=== PATIENT | female | born 1995 | race Caucasian/White ===

== ENCOUNTER 2022-09-25 02:35 | Inpatient (IN) | payer MEDICAID, SELFPAY ==
[2022-09-25] VITALS (20 sets, daily range): BP systolic 82–130; BP diastolic 48–80; PULSE 52–111; RESP 15–18; TEMP 36.8–37.2; O2SAT 97–100; BMI 39.9
--- NOTE | 2022-09-25 02:46 | LDADM ---
This patient, Linn Servin, was admitted to Labor/Delivery/Recovery 107 on 09/25/22 at 02:49. Plans for labor, pain management and were discussed with patient. Patient/family oriented to hospital policies and general routines including ID bracelet, bed and alarms, visiting hours, pain management, procedures, bathroom and other care routines, personal items, smoking policy, room service/diet and guest tray routines, security routines, and visiting hours. Patient/Family are encouraged to report perceived risks to care and to ask questions if they do not understand what they are told or what they should do. See OBIX for further documentation.
[2022-09-25 03:42] LABS: Basophils Percent Auto 0.2 % (0.2-1.2); Eosinophils Absolute Auto 0.1 K/mm3 (0-0.3); Eosinophils Percent Auto 0.5 % (0-4.4); Hematocrit 37.7 % (37.0-47.0); Hemoglobin 12.8 g/dL (12.0-15.0); Immature Granulocyte Absolute 0.04 K/mm3 (0.00-0.031); Immature Granulocyte Percent A 0.4 % (0-0.5); Lymphocytes Absolute Auto 2.17 K/mm3 (0.9-3.2); Lymphocytes Percent Auto 23.2 % (18.3-44.2); Mean Corpuscular Hemoglobin 29.7 pg (26-34); Mean Corpuscular Volume 87.5 fl (80-100); Mean Platelet Volume 9.6 fl (7.4-10.4); Monocytes Absolute Auto 0.9 K/mm3 (0.1-0.6); Monocytes Percent Auto 10.1 % (2.6-8.5); Neutrophils Absolute Auto 6.1 K/mm3 (1.3-6.7); Neutrophils Percent Auto 65.6 % (45.5-73.1); Platelet Count Result 255 k/mm3 (150-375); Red Blood Count 4.31 M/mm3 (4.2-5.4); Red Cell Distribution Width 13.2 % (11.5-14.5); White Blood Count 9.3 K/mm3 (4.5-10.0)
[2022-09-25] MEDS: LACTATED RINGERS 1,000 ML 125 ML IV CONT (04:10)
[2022-09-25] MEDS: ceFAZolin 2 GM/D5W 50 ML 2 GM/50 ML BAG IVPB (04:10)
[2022-09-25 04:29] LABS: Amphetamine Screen Urine Negative (Negative); Barbiturate Screen Urine Negative (Negative); Benzodiazepines Screen Urine Negative (Negative); Cannabinoid Screen Urine Negative (Negative); Cocaine Screen Urine Negative (Negative); Methadone Screen Urine Negative (Negative); Opiate Screen Urine Negative (Negative); Phencyclidine Screen Urine Negative (Negative)
[2022-09-25 04:33] LABS: HIV 1/2 Ab P24 Ag Result Negative (Negative)
[2022-09-25 04:56] LABS: Hepatitis B Surface Antigen Negative (Negative)
[2022-09-25] MEDS: OXYTOCIN 30 UNITS/NS 500 ML 30 UNITS/500 ML BAG 999 UNITS IV CONT (05:04)
[2022-09-25] MEDS: LIDOCAINE HCL 1% LOCAL INJ 20 ML VIAL (05:07)
--- NOTE | 2022-09-25 05:16 | PM.IMHP ---
H&P: HPI History of Present Illness Date/Time: 09/25/22 05:16 Chief Complaint: labor Narrative: 27yo with no care arrived in active labor at 7 cm. Patient states was seen at 11 weeks in an ER and by u/s her EDC is 09/25/22. 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 Patient progressed quickly to complete. On my arrival I AROM with clear fluid noted. Review of Systems Review of Systems: no specific complaints PMFSH Past Medical History Medical History (Updated 09/25/22 @ 05:23 by Dorinda Tinsley MD) (normal spontaneous vaginal delivery) Prior -Does not have custody of this child Surgical History Surgical History (Updated 09/25/22 @ 05:20 by Dorinda Tinsley MD) No pertinent past surgical history Social History Social History Smoking status: Former smoker Tobacco type: e-cigarettes/vaping Second hand tobacco smoke exposure: No Substance use: never Lack of Transportation: No Lack of Food: Never True Current Housing: I Have Housing Concerned About Future Housing: No Difficulty Paying Gas/Electric Bills: No Difficulty Paying for Meds: No Currently Unemployed: No Education: Don't Know Difficulty w/ Childcare or Family Care: No Spiritual care concerns: No Meds Home Medications and Allergies Home Medications Medication Instructions Recorded Confirmed Type No Home Medications 09/25/22 09/25/22 History Allergies Allergy/AdvReac Type Severity Reaction Status Date / Time Penicillins Allergy Hives Verified 09/25/22 03:23 raspberry Allergy Unknown Verified 09/25/22 03:23 adhesive tape AdvReac Itching Verified 09/25/22 03:23 Vital Signs Vital Signs - 24 hr 09/25/22 03:41 09/25/22 03:46 09/25/22 04:01 Pulse Rate 77 77 81 Blood Pressure 102/61 110/69 130/67 Oxygen Delivery 09/25/22 04:16 09/25/22 04:31 09/25/22 03:45 Pulse Rate 78 78 Blood Pressure 120/68 127/80 Oxygen Delivery Room Air Exam Const: General: No comfortable Nutritional Appearance: average body habitus Resp: Effort & Inspection: normal respiratory effort GI: GI Palp: Yes Soft to palpation, No Tenderness to palpation present (GI) and Yes Palpable mass present (gravid appears term) : External Female Exam: normal external appearance Manual OB Exam: dilated 10 cm, effaced fully, station -1 and other (BBOW clear fluid with AROM) H&P: Results Labs Labs: Short CBC 09/25/22 Range/Units 03:25 WBC 9.3 (4.5-10.0) K/mm3 Hgb 12.8 (12.0-15.0) g/dL Hct 37.7 (37.0-47.0) % Plt Count 255 (150-375) k/mm3 Assessment and Plan Assessment and plan (1) 40 weeks gestation of : Code(s): Z3A.40 - 40 weeks gestation of Status: Acute (2) Active labor: Status: Acute Assessment and Plan: proceeded with delivery-see delivery note
--- NOTE | 2022-09-25 05:23 | PM.OBPRVD ---
OB - Delivery Note Procedure Delivery date: 09/25/22 Procedure: Events: No Care Induction method: None Delivery monitor: External FHT and External Uterine Route of delivery: Laceration Description: Periurethral (Bilateral with left requiring repair) Delivery repair: vicryl (4-0) Specimen: Yes (placenta) Quantitative Blood Loss (ml): 200 Anesthesia type: Local Disposition: Floor Baby Date of : 09/25/22 Weeks of gestation at delivery: 40 gender: Female Weight (pounds): 7 Weight (ounces): 15 presentation: vertex position: Right Occiput Anterior Placenta delivery description: Spontaneous Cord Vessel Description: 3 Vessels and Delayed Cord Clamping score one minute: 9 score five minutes: 9 Narrative: Peds present for delivery
--- NOTE | 2022-09-25 05:25 | P.DS_ITS ---
DS: Admitting Diagnosis Discharge Date 09/27/22 Admitting Diagnosis IUP 40 0/7 in active labor No care DS: Discharge Diagnosis Discharge Diagnosis (1) (normal spontaneous vaginal delivery): Code(s): O80 - Encounter for full-term uncomplicated delivery Status: Acute OB - DS: Summary OB Procedures : Ultrasound OB Procedures Intrapartum: Spontaneous Vag Delivery OB Procedures: : None Peripartum Data Delivery Method: Natural Vaginal Laceration Description: Periurethral complications: none Status at Discharge Functional status at discharge: independent ambulation Overall status at discharge: patient is progressing back to baseline Time Spent with Patient Time attestation: Total time spent providing and/or coordinating discharge services: DS: Data Data Completed and Pending Labs on day of discharge: Labs from last 24 hours 09/25/22 09/25/22 03:36 03:25 WBC 9.3 RBC 4.31 Hgb 12.8 Hct 37.7 MCV 87.5 MCH 29.7 MCHC 34.0 RDW 13.2 Plt Count 255 MPV 9.6 Immature Gran % (Auto) 0.4 Neut % (Auto) 65.6 Lymph % (Auto) 23.2 [place] % (Auto) 10.1 H Eos % (Auto) 0.5 Baso % (Auto) 0.2 Lymph # (Auto) 2.17 [place] # (Auto) 0.9 H Eos # (Auto) 0.1 Baso # (Auto) 0.0 Abs Immat Gran (auto) 0.04 H Absolute Neuts (auto) 6.1 Absolute Nucleated RBC 0.0 Nucleated RBC % 0.0 Urine Opiates Screen Negative Urine Methadone Screen Negative Ur Barbiturates Screen Negative Ur Phencyclidine Scrn Negative Ur Amphetamine Screen Negative U Benzodiazepines Scrn Negative Urine Cocaine Screen Negative U Cannabinoids Screen Negative RPR Pending Hep Bs Antigen Negative HIV 1&2 Ab/P24 Ag 4thGn Negative Rubella IgG Antibody Pending Blood Type O Negative Antibody Screen Negative Discharge Plan Discharge Attending physician on discharge: Dorinda Tinsley Discharging Clinician: Dorinda Tinsley Anticipated Discharge Date/Time: 09/27/22 05:28 Patient Disposition: Home, Self-Care Activity: may shower and pelvic rest Diet: regular Patient Instructions: Antibiotic Form Stand Alone Forms: General Discharge Information Follow-up/Referrals: Dorinda Tinsley MD [Physician] - 6 Weeks Discharge Medications: No Action No Home Medications Date of admission: 09/25/22 02:49 Primary Care Provider: UNKNOWN,DOCTOR Admitting Provider: Dorinda Tinsley Attending physician on admission: Dorinda Tinsley Condition: Stable
[2022-09-25] MEDS: OXYTOCIN 30 UNITS/NS 500 ML 30 UNITS/500 ML BAG 125 UNITS IV CONT (05:35)
[2022-09-25 05:36] LABS: Rubella IgG Antibody 6.9 IU/ML
[2022-09-25] MEDS: IBUPROFEN 600 MG TABLET PO ×3 (06:11→17:42)
--- NOTE | 2022-09-25 07:55 | PC.NURSE ---
PT introductions made and plan of care discussed per post , pain management, breast feeding, daily care activities. PT and fob both recipients of such instructions and no barriers to learning identified at this time. PT received such instructions per one to one discussion, mom baby care guide and demonstrations this shift. PT verbalized understanding of such care.
--- NOTE | 2022-09-25 08:40 | PCCCNOTE ---
Received referral. Met with pt. and father of baby at bedside. Pt. previously living in [place]. 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 She indicates no care due to this as well as no insurance. She's recently established apartment in [place] and will be residing there with baby and father of baby when he isn't over the road for work. She indicates having applied for Medicaid and application is pending. She is aware of [facility] service location and contact information for follow up. She will be seen by [facility] during hospitalization. She plans to contact [facility] as well. Have provided [facility] contact information as well as other resources. Encouraged she contact any/all of interest and she states agreement. She has local friends that live nearby and will assist her. Friends present at hospital this morning. She has contact information for a recommended OBGYN and corporation pilot provided by her friend to establish care. She has all needed items to care for baby at discharge home including car seat present in hospital room. She has a daughter that lives in [place] with her father. She indicates her situation without insurance and being over the road was not ideal for her daughter and that is why she lives with her father. She denies any history with department of children family services. She denies any use of alcohol/drugs. Her UDS is all negative. Have discussed about with RN. No other concerns indicated at this time.
[2022-09-25] MEDS: DOCUSATE SODIUM 100 MG CAPSULE PO ×2 (10:27→17:43)
[2022-09-25] MEDS: LANOLIN (LANSINOH) 7.5 GM CREAM 1 APPLIC TOPICAL (10:27)
[2022-09-25] MEDS: MULTIVIT/MIN/PREN/FOL AC/IRON TABLET 1 TAB PO (10:27)
[2022-09-25] MEDS: BENZOCAINE 20% AER SPR (*SP) 56 GM CAN 1 SPRAY (10:27)
[2022-09-25] MEDS: WITCH HAZEL 40 PADS 1 PAD (10:28)
[2022-09-25] MEDS: ACETAMINOPHEN 325 MG TABLET 650 MG PO ×2 (11:40→21:05)
[2022-09-26 05:32] LABS: Basophils Percent Auto 0.4 % (0.2-1.2); Eosinophils Absolute Auto 0.1 K/mm3 (0-0.3); Hematocrit 34.7 % (37.0-47.0); Hemoglobin 11.5 g/dL (12.0-15.0); Immature Granulocyte Absolute 0.05 K/mm3 (0.00-0.031); Immature Granulocyte Percent A 0.5 % (0-0.5); Lymphocytes Percent Auto 28.1 % (18.3-44.2); Mean Corpuscular HGB Conc 33.1 g/dl (32-36); Mean Corpuscular Hemoglobin 29.8 pg (26-34); Mean Corpuscular Volume 89.9 fl (80-100); Mean Platelet Volume 9.9 fl (7.4-10.4); Monocytes Absolute Auto 0.8 K/mm3 (0.1-0.6); Monocytes Percent Auto 7.5 % (2.6-8.5); Neutrophils Absolute Auto 6.5 K/mm3 (1.3-6.7); Neutrophils Percent Auto 62.5 % (45.5-73.1); Platelet Count Result 228 k/mm3 (150-375); Red Blood Count 3.86 M/mm3 (4.2-5.4); Red Cell Distribution Width 13.4 % (11.5-14.5); White Blood Count 10.3 K/mm3 (4.5-10.0)
--- NOTE | 2022-09-26 07:30 | PC.NURSE ---
PT introductions made and plan of care discussed per post , pain management, breast feeding, daily care activities. PT and family recipients of such instructions and no barriers to learning identified at this time. PT received such instructions per one to one discussion, mom baby care guide and demonstrations this shift. PT verbalized understanding of such care.
[2022-09-26 09:00] VITALS: BP 118/61; PULSE 74; RESP 18; TEMP 36.6; O2SAT 100
[2022-09-26] MEDS: MULTIVIT/MIN/PREN/FOL AC/IRON TABLET 1 TAB PO (09:20)
--- NOTE | 2022-09-26 10:01 | PM.OBPNVD ---
OB - PN: Subj Subjective Date/time seen: 09/26/22 10:01 Patient comments: pain well controlled, tolerating diet and other (Decreasing lochia.) baby status: doing well and nursing well OB - PN: Obj Data Labs 09/26/22 04:23 Labs: Laboratory Results - last 24 hr 09/26/22 04:23 WBC 10.3 H RBC 3.86 L Hgb 11.5 L Hct 34.7 L MCV 89.9 MCH 29.8 MCHC 33.1 RDW 13.4 Plt Count 228 MPV 9.9 Immature Gran % (Auto) 0.5 Neut % (Auto) 62.5 Lymph % (Auto) 28.1 [place] % (Auto) 7.5 Eos % (Auto) 1.0 Baso % (Auto) 0.4 Lymph # (Auto) 2.90 [place] # (Auto) 0.8 H Eos # (Auto) 0.1 Baso # (Auto) 0.0 Abs Immat Gran (auto) 0.05 H Absolute Neuts (auto) 6.5 Absolute Nucleated RBC 0.0 Nucleated RBC % 0.0 Blood Type O Negative Antibody Screen Negative Screen Negative Baby's Blood Type A pos Baby's JUAN Negative Doses of RhIg Required 1 OB - PN A/P Plan day: 1 Plan: routine care Comments: Patient doing well. Time Spent With Patient Time: Total time spent is greater than 50% in coordination of care (as documented) at patient's floor/unit and/or counseling patient: Exam Psych: Affect: normal affect Other: Abd: fundus firm below umbilicus, nontender Perineum: healing Ext: nontender
[2022-09-26] MEDS: RHO(D) IMMUNE GLOBULIN 300 MCG/2 ML SYRINGE IM (16:19)
--- NOTE | 2022-09-26 16:20 | PC.NURSE ---
1620 Rhogam did not scan using all barcodes available. Called [facility] to report this. They stated to manually input it and double check pts arm band with Rhogam label.
[2022-09-26 19:00] VITALS: BP 115/69; PULSE 88; RESP 16; TEMP 36.9; O2SAT 99
--- NOTE | 2022-09-26 23:38 | PC.NURSE ---
09/26/2022 at 2300 Patient viewed the discharge video Mother & Baby Care, The First Two Weeks . Patient was given the opportunity and encouraged to ask questions. Patient verbalized understanding of information shared and has been given the mother/baby guide for home reference.
[2022-09-27 07:45] VITALS: BP 113/56; PULSE 64; RESP 18; TEMP 36.4; O2SAT 100
--- NOTE | 2022-09-27 09:25 | PM.OBPNVD ---
OB - PN: Subj Subjective Date/time seen: 09/27/22 09:25 Patient comments: no complaints and pain well controlled baby status: doing well OB - PN: Obj Data Labs 09/26/22 04:23 Labs: Laboratory Results - last 24 hr 09/26/22 04:23 Blood Type O Negative Antibody Screen Negative Screen Negative Baby's Blood Type A pos Baby's JUAN Negative Doses of RhIg Required 1 OB - PN A/P Plan day: 2 Plan: routine care, discharge home and follow up 6 weeks Time Spent With Patient Time: Total time spent is greater than 50% in coordination of care (as documented) at patient's floor/unit and/or counseling patient: Exam : Bimanual exam- vagina & uterus: other (Uterus firm, nt @U)
[2022-09-27 13:14] LABS: Rapid Plasma Reagin Non-Reactive (NonReactive)
--- NOTE | 2022-09-27 13:46 | PC.NURSE ---
[id number] Introductions were made, then consulted with patient to assess needs related to . Mother led the conversation with her?plans to feed?her infant, her 2 years of experience with her first child, and the?experience so far with this . Mother states she just detached due to the fact that the infant fell asleep. Mother decided to latch to the right breast due to infant's feeding cues. Infant was latched with a lot of breast movement, lip movement, and lip smacking. Encouraged mother to latch deeply with lips turned out and reducing movement with a mouthful so gets a better latch and more swallows. Mother was able to latch infant to the left breast using cradle positioning, no upper lip movement with breast moving in/out of the mouth, no lip smacking, however, the tongue is outside of the mouth as the breast feeds. Mother denies pain and is confident with contentment that she is capable of independently. Reminded parents to use good handwashing technique to prevent infection. Mother is feeding appropriately for growth of and understands stimulating infant to eat if needed. has had appropriate feedings in the last 24 hours meets the outcomes for weight, output and jaundice at this time. Encouraged mother to practice bringing the infant in close to her body to encourage a deeper latch. Mother states she is confident to continue effectively breastfeed her infant at home, when to call for assistance and denies any additional assistance or education at this time. Reinforced understanding of milk production, transition of milk, signs of adequate intake, transition of stool, prevention/relief of engorgement/mastitis, responsive watching for feeding cues, the different methods of stimulating infant to breastfeed 2-3 hours after the start of the last feeding, community resources, medication information reviewed per [facility] and when to call a provider using the resource of the mom/baby guide,business card, and encouraged reaching out to her local [facility] office. Mother voiced understanding of the education shared. Reported to the primary RN.
[2022-09-27] MEDS: MEASLES,MUMPS,RUBELLA VACCINE 0.5 ML VIAL SUB-Q (14:10)
== END 2022-09-27 14:37 | disposition home or self-care (01) | DRG 560 ==
LOC: ANHLDR 05:28 → ANHOB2 07:57
PROVIDERS: Admitting Provider Obstetrics & Gynecology Gynecology; Visit Provider Obstetrics & Gynecology Gynecology
DX: O69.81X0 Labor and delivery complicated by cord around neck, without compression, not applicable or unspecified (principal); F17.290 Nicotine dependence, other tobacco product, uncomplicated; O99.334 Smoking (tobacco) complicating childbirth; O71.82 Other specified trauma to perineum and vulva; Z3A.40 40 weeks gestation of pregnancy; Z37.0 Single live birth
CPT/HCPCS: 36415; 80307; 85025; 85461; 86592; 86703; 86762; 86850; 86900; 86901; 87340; 88307; 90384; 90710; A9270; G0432; J0690; J2590; J2790; J7120